=== PATIENT | male | born 1955 | race Caucasian/White ===

== ENCOUNTER 2023-11-13 10:31 | Outpatient (AMB) | payer MEDICARE, OTHER, SELFPAY ==
--- NOTE | 2023-11-13 12:49 | MHC.OFFWIV ---
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 He has persistent low-grade fevers for the past week. He is concerned about RSV as he is having his little grandchildren, and stay with him this weekend. Requesting viral swab. He is using DayQuil and NyQuil which has been helping with the cough. No significant shortness of breath. [facility] Social History Patient Tobacco Use Status: Never used Tobacco Review of Systems ENT Denies dizziness, Reports nasal congestion and Reports sore throat Card Denies rapid heart rate, Denies dyspnea and Denies dyspnea on exertion Resp Denies dyspnea and Denies dyspnea on exertion GI Denies dyspepsia and Denies heartburn Musc Denies arthralgias and Denies muscle cramps Neuro Denies dizziness, Denies focal weakness and Denies Other visual disturbances Physical Exam Vital Signs: Last Vital Signs Temp 97.9 F 11/13/23 12:53 Pulse 88 11/13/23 12:53 BP 160/80 H 11/13/23 12:53 Pulse Ox 98 11/13/23 12:53 Oxygen Delivery Method Room Air 11/13/23 12:53 BMI result Body Mass Index 28.4 Const General: healthy appearing and no acute distress HEENT Mouth: Normal oral and palatal mucosa present Resp Effort & Inspection: normal respiratory effort and able to speak in complete sentences Auscultation: clear to auscultation bilaterally Cardio Rate: regular rate Rhythm: regular rhythm Assessment & Plan Assessment & Plan (1) Cough: Code(s): R05.9 - Cough, unspecified Plan Patient's lungs are clear O2 sat 98%. Viral swab sent, will be in touch with patient with results. Will prescribe Tessalon Perles for added relief of cough symptoms. Recommend return if symptoms worsen Orders: Orders SARS-CoV2/FLU/RSV Today R68.89 - Other general symptoms and signs Medications: New benzonatate 100 mg PO TID PRN 14 caps 0RF cough Coding Level of Care Code Est Pt Level 3 (07723) Diagnoses Cough R05.9
[2023-11-13 12:53] VITALS: BP 160/80; PULSE 88; TEMP 36.6; O2SAT 98; BMI 28.4
== END 2023-11-13 14:18 | disposition home or self-care (01) ==
PROVIDERS: PCP Internal Medicine; Visit Provider Emergency Medicine
DX: R05.9 Cough, unspecified (principal)
CPT/HCPCS: 99213

== ENCOUNTER 2023-11-13 16:02 | Outpatient (REF) | payer MEDICARE, OTHER, SELFPAY ==
[2023-11-13 16:47] LABS: Influenza A PCR NEGATIVE (Negative); Influenza B PCR NEGATIVE (Negative); Resp Syncy Virus RNA Qual PCR NEGATIVE (Negative); SARS COV2 PCR INHOUSE NEGATIVE (Negative)
== END 2023-11-13 16:03 | disposition home or self-care (01) ==
LOC: HO.LNP 16:02
PROVIDERS: Visit Provider Emergency Medicine
DX: R68.89 Other general symptoms and signs (principal); Z11.52 Encounter for screening for COVID-19; Z20.828 Contact with and (suspected) exposure to other viral communicable diseases
CPT/HCPCS: 0241U